=== PATIENT | male | born 1990 | race African-American/Black ===

== ENCOUNTER 2020-12-06 13:50 | Inpatient (IN) | payer SELFPAY ==
--- NOTE | 2020-12-06 14:18 | EDM.PDOC ---
ED HPI GENERAL MEDICAL PROBLEM - General Chief Complaint: Respiratory Problem Stated Complaint: BREATHING ISSUES Time Seen by Provider: 12/06/20 13:52 Source of Information: Reports: Patient History Limitations: Reports: No Limitations - History of Present Illness INITIAL COMMENTS - FREE TEXT/NARRATIVE: HISTORY AND PHYSICAL: History of present illness: Patient is a 30 year old male who presents to the ED with complaints of cough x 1 month. Cough started 3-4 weeks ago which has progressively worsened, now productive and frequent. He is requesting a chest x-ray as he is concerned he has pneumonia. Patient does have a history of sickle cell and has been seeing a primary care provider for disease management, last seen 1-2 weeks ago. Patient recently moved here, has not established with a PCP in [place]. States he quit smoking about 3-4 months ago. Patient denies any fever, chills, headache, change in vision, syncope or near syncope. Denies any chest pain, back pain, shortness of breath or hemoptysis. Denies any abdominal pain, nausea, vomiting, diarrhea, constipation or dysuria. Has not noted any blood in urine or stool. Patient has been eating and drinking appropriately. Review of systems: As per history of present illness and below otherwise all systems reviewed and negative. Past medical history: As per history of present illness and as reviewed below otherwise noncontributory. Surgical history: As per history of present illness and as reviewed below otherwise noncontributory. Social history: See social history for further information Family history: As per history of present illness and as reviewed below otherwise noncontributory. Physical exam: General: Well developed and well nourished 30 year old black male. Alert and orientated x 3. Nontoxic in appearance and in no acute distress. Vital signs have been reviewed by me. Nursing notes were reviewed. HEENT: Atraumatic, normocephalic, pupils equal and reactive bilaterally, negat aldo for conjunctival pallor or scleral icterus, mucous membranes moist, neck supple, nontender, trachea midline. No drooling or trismus noted. No meningeal signs. No hot potato voice noted. Lungs: Diminished to auscultation bilaterally. No wheezes, rales, or rhonchi. Chest nontender. Increased work of breathing, tachypnea. No accessory muscles used. Dry nonproductive cough noted. Heart: Tachycardia with regular rate and rhythm without overt murmur, gallops, or rubs. No JVD. Abdomen: Soft, nondistended, nontender. Normoactive bowel sounds. Negative for masses or costovertebral tenderness. Skin: Intact, warm, dry. No lesions or rashes noted. Hematologic: No petechiae or purpra. Mucosa appropriate color and normal nail bed color and refill. Extremities: Atraumatic, moves all extremities per self without difficulty or deficits, negative for cords or calf pain. Bilateral ankle/foot edema. Neurovascular unremarkable. Neuro: Awake, alert, oriented. Cranial nerves II through XII unremarkable. Cerebellum unremarkable. Motor and sensory unremarkable throughout. Exam nonfocal. Psychiatric: Mood and affect are appropriate. Normal thought process. Answering questions appropriately. Notes: *This patient was seen and evaluated during the 2019 SARS-CoV-2 novel coronavirus pandemic period. Community viral transmission is ongoing at time of this encounter and the emergency department is operating under pandemic response procedures. Patient has bilateral lower extremity swelling and tenderness. He states is due to his Sickle Cell and was seeing a primary care provider in his previous location, but hasn't seen anyone here. Patient's noted he is tachycardic, but he is refusing lab work. Did offer to do a COVID-19 swab, declines. He states he is here for a chest x-ray to rule out pneumonia. He is agreeable to an EKG due to the tachycardia. Chest x-ray shows bilateral infiltrates left greater than right. Informed of chest x-ray finding, strongly encouraged him to allow lab work as I feel he will likely require admission. Patient is agreeable. Dr Schmid verbally involved in this case. Will start IV antibiotics. Patient's labs are abnormal. + COVID 19 results. He is unable to get a CT with contrast due to his BUN/Creat. Spoke with Dr Castellanos about this patient, will admit to Med/Surg with telemetry. Diagnostics: CXR, CBC, CMP, Reticulocyte, Lactate, BC x 2, CTA chest, UA, EKG Therapeutics: LR at 125ml/hr, Rocephin, Azithromycin Impression: Bilateral Pneumonia History of Sickle Cell COVID - 19 Plan: Inpatient admission to Med/Surg with Telemetry Definitive disposition and diagnosis as appropriate pending reevaluation and review of above. - Related Data Allergies Allergy/AdvReac Type Severity Reaction Status Date / Time bee venom protein (honey bee) Allergy Other Verified 12/06/20 18:45 Home Meds: Home Meds . [No Known Home Meds] 12/06/20 [History] ED ROS GENERAL - Review of Systems Review Of Systems: Comprehensive ROS is negative, except as noted in HPI. ED EXAM, GENERAL - Physical Exam Exam: See Below (See dictation) Course - Vital Signs Last Recorded V/S: Last Vital Signs Temp 98.4 F 12/06/20 23:20 Pulse 135 H 12/06/20 23:20 Resp 41 H 12/06/20 23:20 BP 177/112 H 12/06/20 23:20 Pulse Ox 97 12/06/20 23:20 - Orders/Labs/Meds Orders: Active Orders 24 hr Category Date Time Status CULTURE BLOOD [BC] Stat Lab 12/06/20 15:21 Received CULTURE BLOOD [BC] Stat Lab 12/06/20 15:32 Received Blood Culture x2 Reflex Set [OM.PC] Stat Oth 12/06/20 15:06 Ordered Saline Lock Insert [OM.PC] Stat Oth 12/06/20 15:06 Ordered Medication Orders Vancomycin HCl (Pharmacy To Dose - Vancomycin) 1 dose .XX ASDIRECTED [facility] Labs: Laboratory Tests 12/06/20 12/06/20 12/06/20 Range/Units 15:21 15:21 15:21 WBC 36.98 H (4.0-11.0) K/uL RBC 2.13 L (4.50-5.90) M/uL Hgb 7.0 L (13.0-17.0) g/dL Hct 20.4 L (38.0-50.0) % MCV 95.8 (80.0-98.0) fL MCH 32.9 H (27.0-32.0) pg MCHC 34.3 (31.0-37.0) g/dL RDW Std Deviation 65.9 H (28.0-62.0) fl RDW Coeff of Erin 19 H (11.0-15.0) % Plt Count 464 H (150-400) K/uL MPV 10.30 (7.40-12.00) fL Add Manual Diff YES Neutrophils % (Manual) 86 H (48.0-80.0) % Band Neutrophils % 4 % Lymphocytes % (Manual) 6 L (16.0-40.0) % Monocytes % (Manual) 4 (0.0-15.0) % Nucleated RBC % 7.4 /100WBC Absolute Seg Neuts 31.8 H (1.4-5.7) Band Neutrophils # 1.5 Lymphocytes # (Manual) 2.2 (0.6-2.4) Monocytes # (Manual) 1.5 H (0.0-0.8) Nucleated RBCs # 1 K/uL Polychromasia 3+ MARKED Poikilocytosis 3+ MARKED Sickle Cells 2+ MODERATE Target Cells 3+ MARKED Absolute Retic 429.00 H (20-80) K/uL Percent Retic 21.5 H (0.5-1.5) % Immature Retic Fraction 22 % Lactate 3.0 H* (0.20-2.00) mmol/L Sodium 131 L (136-148) mmol/L Potassium 4.3 (3.5-5.1) mmol/L Chloride 96 L (98-107) mmol/L Carbon Dioxide 23.3 (21.0-32.0) mmol/L BUN 38 H (7.0-18.0) mg/dL Creatinine 2.4 H (0.8-1.3) mg/dL Est Cr Clr Drug Dosing 48.81 mL/min Estimated GFR (MDRD) 39.3 ml/min Glucose 120 H (74-106) mg/dL Calcium 7.7 L (8.5-10.1) mg/dL Total Bilirubin 4.8 H (0.2-1.0) mg/dL AST 83 H (15-37) IU/L ALT 47 (14-63) IU/L Alkaline Phosphatase 83 (46-116) U/L Total Protein 7.8 (6.4-8.2) g/dL Albumin 1.9 L (3.4-5.0) g/dL Globulin 5.9 H (2.6-4.0) g/dL Albumin/Globulin Ratio 0.3 L (0.9-1.6) Influenza Type A RNA (NEGATIVE) Influenza Type B RNA (NEGATIVE) SARS-CoV-2 RNA (ALANNA) (NEGATIVE) 12/06/20 Range/Units 15:42 WBC (4.0-11.0) K/uL RBC (4.50-5.90) M/uL Hgb (13.0-17.0) g/dL Hct (38.0-50.0) % MCV (80.0-98.0) fL MCH (27.0-32.0) pg MCHC (31.0-37.0) g/dL RDW Std Deviation (28.0-62.0) fl RDW Coeff of Erin (11.0-15.0) % Plt Count (150-400) K/uL MPV (7.40-12.00) fL Add Manual Diff Neutrophils % (Manual) (48.0-80.0) % Band Neutrophils % % Lymphocytes % (Manual) (16.0-40.0) % Monocytes % (Manual) (0.0-15.0) % Nucleated RBC % /100WBC Absolute Seg Neuts (1.4-5.7) Band Neutrophils # Lymphocytes # (Manual) (0.6-2.4) Monocytes # (Manual) (0.0-0.8) Nucleated RBCs # K/uL Polychromasia Poikilocytosis Sickle Cells Target Cells Absolute Retic (20-80) K/uL Percent Retic (0.5-1.5) % Immature Retic Fraction % Lactate (0.20-2.00) mmol/L Sodium (136-148) mmol/L Potassium (3.5-5.1) mmol/L Chloride (98-107) mmol/L Carbon Dioxide (21.0-32.0) mmol/L BUN (7.0-18.0) mg/dL Creatinine (0.8-1.3) mg/dL Est Cr Clr Drug Dosing mL/min Estimated GFR (MDRD) ml/min Glucose (74-106) mg/dL Calcium (8.5-10.1) mg/dL Total Bilirubin (0.2-1.0) mg/dL AST (15-37) IU/L ALT (14-63) IU/L Alkaline Phosphatase (46-116) U/L Total Protein (6.4-8.2) g/dL Albumin (3.4-5.0) g/dL Globulin (2.6-4.0) g/dL Albumin/Globulin Ratio (0.9-1.6) Influenza Type A RNA NEGATIVE (NEGATIVE) Influenza Type B RNA NEGATIVE (NEGATIVE) SARS-CoV-2 RNA (ALANNA) POSITIVE H (NEGATIVE) Meds: Medications Generic Name Dose Route Start Last Admin Trade Name Freruby PRN Reason Stop Dose Admin Vancomycin HCl 1 dose 12/06/20 22:00 Pharmacy To Dose - Vancomycin .XX ASDIRECTED RONI Discontinued Medications Generic Name Dose Route Start Last Admin Trade Name Disha PRN Reason Stop Dose Admin Acetaminophen 500 mg 12/06/20 19:07 Acetaminophen 500 Mg Tab PO Q4H PRN Pain Dextrose/Water Confirm 12/06/20 23:46 50% Dextrose In Water 50 Ml Syringe Administered 12/06/20 23:47 Dose 100 ml .ROUTE .STK-MED ONE Heparin Sodium (Porcine) 5,000 units 12/06/20 22:00 12/06/20 22:25 Heparin Sodium 5,000 Units/Ml Vial SUBCUT 5,000 units Q8H RONI Administration Lactated Ringer's 1,000 mls @ 125 mls/hr 12/06/20 15:15 12/06/20 15:49 Ringers, Lactated IV 12/06/20 21:00 125 mls/hr ASDIRECTED RONI Administration Ceftriaxone Sodium 1 gm/ 50 mls @ 100 mls/hr 12/06/20 15:07 12/06/20 15:36 Sodium Chloride IV 12/06/20 15:36 Not Given ONETIME ONE Azithromycin 500 mg/ Sodium 250 mls @ 250 mls/hr 12/06/20 15:15 Chloride IV ONETIME RONI Ceftriaxone Sodium/Dextrose 1 50 mls @ 100 mls/hr 12/06/20 15:28 12/06/20 15:36 gm/ Premix IV 12/06/20 15:57 100 mls/hr ONETIME ONE Administration Azithromycin 500 mg/ Sodium 250 mls @ 250 mls/hr 12/06/20 15:45 12/06/20 15:50 Chloride IV 250 mls/hr ONETIME RONI Administration Remdesivir 200 mg/ Sodium 250 mls @ 250 mls/hr 12/06/20 20:00 12/06/20 22:24 Chloride IV 12/06/20 20:59 250 mls/hr ONETIME ONE Administration Remdesivir 100 mg/ Sodium 100 mls @ 100 mls/hr 12/07/20 20:00 Chloride IV 12/10/20 20:59 DAILY@[id number] RONI Azithromycin 500 mg/ Sodium 250 mls @ 250 mls/hr 12/07/20 09:00 Chloride IV DAILY RONI Ceftriaxone Sodium/Dextrose 2 100 mls @ 200 mls/hr 12/07/20 15:00 gm/ Premix IV Q24H RONI Lactated Ringer's 500 mls @ 999 mls/hr 12/06/20 19:50 12/06/20 21:56 Ringers, Lactated IV 12/06/20 20:20 999 mls/hr BOLUS ONE Administration Azithromycin 500 mg/ Sodium 250 mls @ 250 mls/hr 12/07/20 15:30 Chloride IV DAILY@[id number] RONI Piperacillin Sod/Tazobactam 100 mls @ 100 mls/hr 12/06/20 22:00 12/06/20 23:13 Sod 4.5 gm/ Sodium Chloride IV 100 mls/hr Q8H RONI Administration Vancomycin HCl 1 gm/ Sodium 250 mls @ 166 mls/hr 12/06/20 23:00 Chloride IV Q12H RONI Sodium Chloride Confirm 12/06/20 22:31 Normal Saline Administered 12/06/20 22:32 Dose 100 mls @ as directed .ROUTE .STK-MED ONE Oxycodone HCl 5 mg 12/06/20 18:39 Oxycodone 5 Mg Tab PO Q4H PRN Pain (moderate 4-6) Sodium Chloride 10 ml 12/06/20 15:06 12/06/20 15:50 Sodium Chloride 0.9% 10 Ml Syringe FLUSH 10 ml ASDIRECTED PRN Administration Keep Vein Open Sodium Chloride 2.5 ml 12/06/20 15:06 12/06/20 15:50 Sodium Chloride 0.9% 2.5 Ml Syringe FLUSH 2.5 ml ASDIRECTED PRN Administration Keep Vein Open Departure - Departure Time of Disposition: 09:52 Disposition: Admitted As Inpatient 68 Clinical Impression: COVID-19, Sickle cell disease, Pneumonia - Discharge Information - My Orders Last 24 Hours: My Active Orders 12/06/20 15:06 Blood Culture x2 Reflex Set [OM.PC] Stat Saline Lock Insert [OM.PC] Stat 12/06/20 15:21 CULTURE BLOOD [BC] Stat 12/06/20 15:32 CULTURE BLOOD [BC] Stat - Assessment/Plan Last 24 Hours: My Active Orders 12/06/20 15:06 Blood Culture x2 Reflex Set [OM.PC] Stat Saline Lock Insert [OM.PC] Stat 12/06/20 15:21 CULTURE BLOOD [BC] Stat 12/06/20 15:32 CULTURE BLOOD [BC] Stat
[2020-12-06] MEDS ORDERED: Sodium Chloride 0.9% 10 ML Syringe FLUSH PRN (15:06)
[2020-12-06] MEDS ORDERED: Sodium Chloride 0.9% 2.5 ML Syringe FLUSH PRN (15:06)
[2020-12-06] MEDS ORDERED: cefTRIAXone 1 GM in Sodium Chloride 0.9% 50 ML IV ONE (15:07)
--- NOTE | 2020-12-06 15:07 | CR ---
INDICATION: Cough. Quit smoking 4 months ago. TECHNIQUE: Two-views of the chest PA and lateral. COMPARISON: None. FINDINGS: The heart and mediastinum are unremarkable. There are bilateral pulmonary infiltrates left greater than right suspicious for bilateral pneumonia. COVID-19 not excluded. Infiltrates involve the left upper lobe, left lower lobe and right lung base adjacent to the right heart border. Small left pleural effusion. IMPRESSION: Bilateral infiltrates left greater than right. Dictated by Thang Valentin MD @ 12/06/2020 3:05:[address] Thang Valentin @ Dec 06 2020 3:05PM
[2020-12-06] MEDS ORDERED: Azithromycin 500 MG in Sodium Chloride 0.9% 250 ML IV SCH ×2 (15:15→15:45)
[2020-12-06] MEDS ORDERED: Lactated Ringers 1,000 ML IV SCH (15:15)
--- NOTE | 2020-12-06 15:17 | PCM.SN.2 ---
- Free Text/Narrative Note: EKG: As interpreted by ER physician: Binu: Nonspecific ST-T wave abnormalities Normal axis No evidence of ST elevation ND Sinus tachycardia heart rate of 130
[2020-12-06] MEDS ORDERED: cefTRIAXone 1 GM in Premix Bag 1 BAG IV ONE (15:28)
[2020-12-06 16:04] LABS: CARBON DIOXIDE,CO2 23.3 mmol/L (21.0-32.0); POTASSIUM,K 4.3 mmol/L (3.5-5.1)
[2020-12-06 16:21] LABS: CORONAVIRUS COVID-19 NAA POSITIVE (NEGATIVE); INFLUENZA A NAA NEGATIVE (NEGATIVE); INFLUENZA B NAA NEGATIVE (NEGATIVE)
[2020-12-06] MEDS ORDERED: oxyCODONE 5 MG Tab PO PRN (18:39)
[2020-12-06] MEDS ORDERED: Acetaminophen 500 MG Tab PO PRN (19:07)
--- NOTE | 2020-12-06 19:45 | PCM.HP.2 ---
H&P History of Present Illness - General Date of Service: 12/06/20 Admit Problem/Dx: Admission Diagnosis/Problem Admission Diagnosis/Problem Pneumonia of both lower lobes Source of Information: Patient History Limitations: Reports: No Limitations - History of Present Illness Initial Comments - Free Text/Narative: Patient is a 30-year-old male with a significant past medical history of sickle cell disease presenting to the ED today for worsening cough x3 to 4 days. Mentions cough for 1 month but became increasingly more productive for the past couple days and was having a progressively worsening exertional dyspnea. Patient presented to the ED requesting a chest x-ray secondary to concerns about his pneumonia. Patient has not been on any of his medication including hydroxyurea since 2013 as he has moved here from [place]. Patient does not have a primary care provider in town. Patient otherwise denies any abdominal pain, body aches, chest pain, shortness of breath at rest. +chills and subjective fever at home Patient otherwise has been eating and drinking appropriately. ED course: Chest x-ray: Bilateral infiltrates noted. Covid positive. Given 500 mg azithromycin +2 g ceftriaxone Leukocytosis: 36 Hemoglobin 7 Platelet count 464 Reticulocyte count 429 Percent retake: Twelve 1.5 Lactate 3.0 Hyponatremia 131 RAMONA 2.4 Bedside: Patient endorses similar story as above. Mentions cough and shortness of breath have been getting progressively worse but have been ongoing for the past month Previous smoker of 6 cigarettes/day since the age of 20 but quit 3 weeks prior Denies any alcohol or illicit drug use Patient is endorsing feeling cold and tired but otherwise denies any pain or discomfort. Lower extremity swelling has been ongoing but worsening over the past month. - Related Data Allergies/Adverse Reactions: Allergies Allergy/AdvReac Type Severity Reaction Status Date / Time bee venom protein (honey bee) Allergy Other Verified 12/06/20 18:45 Home Medications: Home Meds . [No Known Home Meds] 12/06/20 [History] Past Medical History Hematologic History: Reports: Sickle Cell Anemia Social & Family History - Family History Family Medical History: No Pertinent Family History - Caffeine Use Caffeine Use: Reports: None - Recreational Drug Use Recreational Drug Use: No H&P Review of Systems - Review of Systems: Review Of Systems: See Below General: Reports: Chills, Weakness, Fatigue. Denies: Fever HEENT: Reports: No Symptoms Pulmonary: Reports: Cough, Sputum. Denies: Shortness of Breath Cardiovascular: Reports: Dyspnea on Exertion, Edema. Denies: Chest Pain, Palpitations Gastrointestinal: Reports: Diarrhea Genitourinary: Reports: No Symptoms Musculoskeletal: Reports: No Symptoms Skin: Reports: No Symptoms Psychiatric: Reports: No Symptoms Neurological: Reports: No Symptoms Exam - Exam Exam: See Below - Vital Signs Vital Signs: Last Vital Signs Temp 98.3 F 12/06/20 18:46 Pulse 132 H 12/06/20 18:46 Resp 20 12/06/20 18:46 BP 142/99 H 12/06/20 18:46 Pulse Ox 99 12/06/20 18:46 Weight: 77.791 kg - Exam Quality Assessment: No: Supplemental Oxygen General: Alert, Oriented, Cooperative HEENT: EOMI, Mucosa Moist & [place] Neck: Supple, Trachea Midline Lungs: Other (increased rate w. shallow breathing; mild coarse bs noted on auscultation w.o wheezing ) Cardiovascular: Regular Rhythm, Tachycardia GI/Abdominal Exam: Soft, Non-Tender Extremities: Other (+1 pitting edmea noted to 1/3 of lower extremity ) Neuro Extensive - Mental Status: Alert, Oriented x3, Normal Mood/Affect, Normal Cognition Neuro Extensive - Motor, Sensory, Reflexes: Normal Gait Psychiatric: Alert, Normal Affect, Normal Mood - Patient Data Lab Results Last 24 hrs: Laboratory Results - last 24 hr 12/06/20 12/06/20 12/06/20 Range/Units 15:21 15:21 15:21 WBC 36.98 H (4.0-11.0) K/uL RBC 2.13 L (4.50-5.90) M/uL Hgb 7.0 L (13.0-17.0) g/dL Hct 20.4 L (38.0-50.0) % MCV 95.8 (80.0-98.0) fL MCH 32.9 H (27.0-32.0) pg MCHC 34.3 (31.0-37.0) g/dL RDW Std Deviation 65.9 H (28.0-62.0) fl RDW Coeff of Erin 19 H (11.0-15.0) % Plt Count 464 H (150-400) K/uL MPV 10.30 (7.40-12.00) fL Add Manual Diff YES Neutrophils % (Manual) 86 H (48.0-80.0) % Band Neutrophils % 4 % Lymphocytes % (Manual) 6 L (16.0-40.0) % Monocytes % (Manual) 4 (0.0-15.0) % Nucleated RBC % 7.4 /100WBC Absolute Seg Neuts 31.8 H (1.4-5.7) Band Neutrophils # 1.5 Lymphocytes # (Manual) 2.2 (0.6-2.4) Monocytes # (Manual) 1.5 H (0.0-0.8) Nucleated RBCs # 1 K/uL Polychromasia 3+ MARKED Poikilocytosis 3+ MARKED Sickle Cells 2+ MODERATE Target Cells 3+ MARKED Absolute Retic 429.00 H (20-80) K/uL Percent Retic 21.5 H (0.5-1.5) % Immature Retic Fraction 22 % Lactate 3.0 H* (0.20-2.00) mmol/L Sodium 131 L (136-148) mmol/L Potassium 4.3 (3.5-5.1) mmol/L Chloride 96 L (98-107) mmol/L Carbon Dioxide 23.3 (21.0-32.0) mmol/L BUN 38 H (7.0-18.0) mg/dL Creatinine 2.4 H (0.8-1.3) mg/dL Est Cr Clr Drug Dosing 48.81 mL/min Estimated GFR (MDRD) 39.3 ml/min Glucose 120 H (74-106) mg/dL Calcium 7.7 L (8.5-10.1) mg/dL Total Bilirubin 4.8 H (0.2-1.0) mg/dL AST 83 H (15-37) IU/L ALT 47 (14-63) IU/L Alkaline Phosphatase 83 (46-116) U/L Total Protein 7.8 (6.4-8.2) g/dL Albumin 1.9 L (3.4-5.0) g/dL Globulin 5.9 H (2.6-4.0) g/dL Albumin/Globulin Ratio 0.3 L (0.9-1.6) Influenza Type A RNA (NEGATIVE) Influenza Type B RNA (NEGATIVE) SARS-CoV-2 RNA (ALANNA) (NEGATIVE) 12/06/20 Range/Units 15:42 WBC (4.0-11.0) K/uL RBC (4.50-5.90) M/uL Hgb (13.0-17.0) g/dL Hct (38.0-50.0) % MCV (80.0-98.0) fL MCH (27.0-32.0) pg MCHC (31.0-37.0) g/dL RDW Std Deviation (28.0-62.0) fl RDW Coeff of Erin (11.0-15.0) % Plt Count (150-400) K/uL MPV (7.40-12.00) fL Add Manual Diff Neutrophils % (Manual) (48.0-80.0) % Band Neutrophils % % Lymphocytes % (Manual) (16.0-40.0) % Monocytes % (Manual) (0.0-15.0) % Nucleated RBC % /100WBC Absolute Seg Neuts (1.4-5.7) Band Neutrophils # Lymphocytes # (Manual) (0.6-2.4) Monocytes # (Manual) (0.0-0.8) Nucleated RBCs # K/uL Polychromasia Poikilocytosis Sickle Cells Target Cells Absolute Retic (20-80) K/uL Percent Retic (0.5-1.5) % Immature Retic Fraction % Lactate (0.20-2.00) mmol/L Sodium (136-148) mmol/L Potassium (3.5-5.1) mmol/L Chloride (98-107) mmol/L Carbon Dioxide (21.0-32.0) mmol/L BUN (7.0-18.0) mg/dL Creatinine (0.8-1.3) mg/dL Est Cr Clr Drug Dosing mL/min Estimated GFR (MDRD) ml/min Glucose (74-106) mg/dL Calcium (8.5-10.1) mg/dL Total Bilirubin (0.2-1.0) mg/dL AST (15-37) IU/L ALT (14-63) IU/L Alkaline Phosphatase (46-116) U/L Total Protein (6.4-8.2) g/dL Albumin (3.4-5.0) g/dL Globulin (2.6-4.0) g/dL Albumin/Globulin Ratio (0.9-1.6) Influenza Type A RNA NEGATIVE (NEGATIVE) Influenza Type B RNA NEGATIVE (NEGATIVE) SARS-CoV-2 RNA (ALANNA) POSITIVE H (NEGATIVE) Result Diagrams: 12/06/20 15:21 12/06/20 15:21 Sepsis Event Note - Evaluation Sepsis Screening Result: Severe Sepsis Risk - Focused Exam Vital Signs: Vital Signs Temp Pulse Resp BP Pulse Ox 12/06/20 18:46 98.3 F 132 H 20 142/99 H 99 12/06/20 17:40 97.6 F 133 H 22 H 139/89 95 12/06/20 16:45 135 H 20 151/97 H 99 12/06/20 16:15 139 H 20 151/90 H 97 12/06/20 15:45 129 H 20 153/92 H 93 L 12/06/20 15:15 131 H 20 143/110 H 98 12/06/20 14:21 98.9 F 133 H 18 151/94 H 98 - Problem List (1) Pneumonia SNOMED Code(s): 482515565 ICD Code: J18.9 - PNEUMONIA, UNSPECIFIED ORGANISM Status: Acute Current Visit: Yes (2) COVID-19 SNOMED Code(s): 725215118 ICD Code: U07.1 - COVID-19 Status: Acute Current Visit: Yes (3) Leukocytosis SNOMED Code(s): 237374170, 169557015 ICD Code: D72.829 - ELEVATED WHITE BLOOD CELL COUNT, UNSPECIFIED Status: Acute Current Visit: Yes (4) Tachycardia SNOMED Code(s): 4422454 ICD Code: R00.0 - TACHYCARDIA, UNSPECIFIED Status: Acute Current Visit: Yes (5) Sickle cell disease SNOMED Code(s): 609715642 ICD Code: D57.1 - SICKLE-CELL DISEASE WITHOUT CRISIS Status: Acute Current Visit: Yes Problem List Initiated/Reviewed/Updated: Yes Orders Last 24hrs: Active Orders 24 hr Category Date Time Status Admission Status [Patient Status] [ADT] Stat ADT 12/06/20 16:36 Active Antiembolic Devices [RC] PER UNIT ROUTINE Care 12/06/20 18:41 Active EKG Documentation Completion [RC] STAT Care 12/06/20 14:25 Active Oxygen Therapy [RC] PRN Care 12/06/20 18:39 Active VTE/DVT Education [RC] PER UNIT ROUTINE Care 12/06/20 18:39 Active Vital Signs [RC] Q4H Care 12/06/20 18:39 Active Regular Diet [DIET] Diet 12/06/20 Breakfast Active CBC WITH AUTO DIFF [HEME] AM Lab 12/07/20 05:11 Ordered CBC WITH AUTO DIFF [HEME] AM Lab 12/08/20 05:11 Ordered CBC WITH AUTO DIFF [HEME] AM Lab 12/09/20 05:11 Ordered COMPREHENSIVE METABOLIC PN,CMP [CHEM] AM Lab 12/07/20 05:11 Ordered COMPREHENSIVE METABOLIC PN,CMP [CHEM] AM Lab 12/08/20 05:11 Ordered COMPREHENSIVE METABOLIC PN,CMP [CHEM] AM Lab 12/09/20 05:11 Ordered CULTURE BLOOD [BC] Stat Lab 12/06/20 15:21 Received CULTURE BLOOD [BC] Stat Lab 12/06/20 15:32 Received LACTIC ACID,WHOLE BLOOD [BG] Routine Lab 12/06/20 19:28 Ordered Acetaminophen [Tylenol Extra Strength] Med 12/06/20 19:07 Active 500 mg PO Q4H PRN Azithromycin [Zithromax] 500 mg Med 12/07/20 09:00 Ordered Sodium Chloride 0.9% [Normal Saline (AdvBag)] 250 ml IV DAILY Azithromycin [Zithromax] 500 mg Med 12/06/20 15:45 Active Sodium Chloride 0.9% [Normal Saline (AdvBag)] 250 ml IV ONETIME Heparin Sodium Med 12/06/20 22:00 Active 5,000 units SUBCUT Q8H Lactated Ringers [Ringers, Lactated] 1,000 ml Med 12/06/20 15:15 Active IV ASDIRECTED Lactated Ringers [Ringers, Lactated] 500 ml Med 12/06/20 19:42 Ordered IV .BOLUS Remdesivir 100 mg Med 12/07/20 19:45 Ordered Sodium Chloride 0.9% [Normal Saline] 100 ml IV Q24H Remdesivir 200 mg Med 12/06/20 19:37 Ordered Sodium Chloride 0.9% [Normal Saline] 250 ml IV ONETIME Sodium Chloride 0.9% [Saline Flush] Med 12/06/20 15:06 Active 10 ml FLUSH ASDIRECTED PRN Sodium Chloride 0.9% [Saline Flush] Med 12/06/20 15:06 Active 2.5 ml FLUSH ASDIRECTED PRN cefTRIAXone [Rocephin in Dextrose,Iso-Osm 2 GM/50 ML] 2 Med 12/07/20 19:45 Ordered gm Premix Bag 1 bag IV Q24H Blood Culture x2 Reflex Set [OM.PC] Stat Ot 12/06/20 15:06 Ordered Saline Lock Insert [OM.PC] Stat Ot 12/06/20 15:06 Ordered Sequential Compression Device [OM.PC] Per Unit Routine Oth 12/06/20 18:40 Ordered Resuscitation Status Routine Resus Stat 12/06/20 18:39 Ordered Medication Orders Acetaminophen (Acetaminophen 500 Mg Tab) 500 mg PO Q4H PRN PRN Reason: Pain Heparin Sodium (Porcine) (Heparin Sodium 5,000 Units/Ml Vial) 5,000 units SUBCUT Q8H [facility] Lactated Ringer's (Ringers, Lactated) 1,000 mls @ 125 mls/hr IV ASDIRECTED RONI Stop: 12/06/20 21:00 Last Admin: 12/06/20 15:49 Dose: 125 mls/hr Documented by: CHER Azithromycin 500 mg/ Sodium (Chloride) 250 mls @ 250 mls/hr IV ONETIME RONI Last Admin: 12/06/20 15:50 Dose: 250 mls/hr Documented by: CHER Remdesivir 200 mg/ Sodium (Chloride) 250 mls @ 250 mls/hr IV ONETIME ONE Stop: 12/06/20 19:38 Remdesivir 100 mg/ Sodium (Chloride) 100 mls @ 100 mls/hr IV Q24H RONI Stop: 12/10/20 20:44 Azithromycin 500 mg/ Sodium (Chloride) 250 mls @ 250 mls/hr IV DAILY [facility] Ceftriaxone Sodium/Dextrose 2 (gm/ Premix) 50 mls @ 100 mls/hr IV Q24H [facility] Lactated Ringer's (Ringers, Lactated) 500 mls @ 999 mls/hr IV .BOLUS ONE Stop: 12/06/20 20:12 Sodium Chloride (Sodium Chloride 0.9% 10 Ml Syringe) 10 ml FLUSH ASDIRECTED PRN PRN Reason: Keep Vein Open Last Admin: 12/06/20 15:50 Dose: 10 ml Documented by: CHER Sodium Chloride (Sodium Chloride 0.9% 2.5 Ml Syringe) 2.5 ml FLUSH ASDIRECTED PRN PRN Reason: Keep Vein Open Last Admin: 12/06/20 15:50 Dose: 2.5 ml Documented by: CHER Assessment/Plan Comment:: Assessment: 1. Bilateral community-acquired pneumonia in SSD patient/Sepsis 2. COVID-19 positive 3. Leukocytosis secondary to above 1 and 2 4. Normocytic anemia in SSD 5. Mild hyponatremia 6. Acute kidney injury Plan Admit inpatient. Full code. I's and O's routine vitals per routine DVT prophylaxis: Heparin 5000 GI prophylaxis: Pantoprazole 1. Sepsis in patient with bilateral community-acquired pneumonia/COVID-19 positive: IV fluid provided; 500 cc bolus; will need to be conservative with fluid administration secondary to SSD and concerns for lysis (normocytic anemia), Blood cultures drawn Antibiotics: Ceftriaxone 2 g plus azithromycin provided in ED Repeat lactate ordered; continue to monitor 2. COVID-19 pneumonia: Patient not requiring oxygen at this time but he is high risk secondary to SSD; remdesivir ordered; patient is in agreement with remdesivir EUA. Continue to monitor O2 saturations. Heparin 5000 continued 3. RAMONA: IV fluids; reduced rate; 125 cc/hr 500 cc bolus given now; recheck BMP in a.m. 4. Normocytic anemia and SST with appropriate reticulocyte count: Continue to monitor for need of transfusion; currently stable; unsure of patient's baseline as this is the patient's first time for admission; 5. Mild hyponatremia: Patient is cognitively intact; will be receiving IV fluids; recheck sodium level in a.m. Patient respiratory status continued to worsen w. RR of 30-40 ; attempted Bipap; pt however did not tolerate this and his WOB had improved; so did not think non/invasive ventilation was necessary; pt has always maintained sats > 95% Repeat Lactate : 10 ; Called and discussed case with [place] suggesting pt. is in severe sepsis (COVID/pneumonia) and due to his SSD may require exchange transfusion. recommend patient be transferred for higher level of care in [place] due to possible need for exchange transfusion. Recommendation for 1 unit transfusion of PRBC and broadening coverage for his sepsis (initiated Vancomycin/Zosyn) and to hold off on further IV fluids for now due to hx of COVID w. sickle cell disease Patient agreeable for transfer. Discussed case with [facility] [place] ; however they felt [place] was more acceptable and closer; called Dr Jang in [facility] who graciously accepted patient. Bcx ordered: pending Discussed case w. resource specialist teacher in [facility] facility; recommended air transportation and admission to ICU/Covid unit. Pt was stable and transferred via air ambulance.
[2020-12-06] MEDS ORDERED: Lactated Ringers 500 ML IV ONE (19:50)
[2020-12-06] MEDS ORDERED: REMDESIVIR 200 MG in Sodium Chloride 0.9% 250 ML IV ONE (20:00)
[2020-12-06] MEDS ORDERED: Piperacillin/Tazobactam 4.5 GM in Sodium Chloride 0.9% 100 ML IV SCH (22:00)
[2020-12-06] MEDS ORDERED: Heparin Sodium 5,000 Units/ML Vial SUBCUT SCH (22:00)
[2020-12-06] MEDS ORDERED: Sodium Chloride 0.9% 0 ML ONE (22:31)
[2020-12-06] MEDS ORDERED: 50% Dextrose in Water 50 ML Syringe ONE (23:46)
[2020-12-07] MEDS ORDERED: Azithromycin 500 MG in Sodium Chloride 0.9% 250 ML IV SCH ×2 (09:00→15:30)
[2020-12-07] MEDS ORDERED: CEFTRIAXONE IV SCH (15:00)
[2020-12-07] MEDS ORDERED: REMDESIVIR 100 MG in Sodium Chloride 0.9% 100 ML IV SCH (20:00)
== END 2020-12-06 23:50 | DRG 871 ==
LOC: MW.ED 13:50 → MW.MS 16:36
PROVIDERS: ADMIT Internal Medicine; ATTEND Internal Medicine
DX: A41.89 Other specified sepsis (principal); U07.1 COVID-19; J12.82 Pneumonia due to coronavirus disease 2019; E87.0 Hyperosmolality and hypernatremia; N17.9 Acute kidney failure, unspecified; D57.1 Sickle-cell disease without crisis; D64.9 Anemia, unspecified; Z87.891 Personal history of nicotine dependence; Z91.030 Bee allergy status
CPT/HCPCS: 0240U; 36415; 36430; 71046; 71046-26; 80053; 83605; 85025; 85045; 86850; 86900; 86901; 86920; 86921; 86922; 87040; 93005; 96365; 96375; 99284; 99285-25; J0456; J0696; J1644; J2543; J7050; J7120; P9016